=== PATIENT | male | born 1945 | race Caucasian/White ===

== ENCOUNTER → 2017-02-13 | Outpatient (REF) | payer MEDICARE ==
[2017-02-13 13:28] LABS: BASO % 0.5 % (0.0-1.0); EOS # 0.1 K/mm3 (0.0-0.50); EOS % 1.5 % (0.0-3.0); LARGE UNSTAINED CELL # 0.1 K/mm3 (0.0-0.4); LARGE UNSTAINED CELL % 1.6 % (0.0-4.0); LYMPH % 15.1 % (24.0-44.0); MEAN CORPUSCULAR HEMOGLOBIN 30.4 pg (27.0-33.0); MEAN CORPUSCULAR HGB CONC 33.6 g/dl (32.0-36.5); MEAN CORPUSCULAR VOLUME 90.7 fl (80.0-96.0); MONO # 0.3 K/mm3 (0.0-0.8); MONO % 5.4 % (0.0-5.0); NEUTROPHILS # 4.8 K/mm3 (1.8-7.7); PLATELET COUNT, AUTOMATED 225 k/mm3 (150-450); RED CELL DISTRIBUTION WIDTH 12.3 % (11.5-14.5); WHITE BLOOD COUNT 6.4 K/mm3 (4.0-10.0)
[2017-02-13 14:35] LABS: ERYTHROCYTE SEDIMENTATION RATE 8 mm/hr (0-20)
[2017-02-15 00:06] LABS: Lyme Disease IgG/IgM Antibodie <0.91 ISR (0.00-0.90); Lyme Disease IgM Ab Quantitati <0.80 index (0.00-0.79)
== END ==
LOC: M LABDRAW1 12:54
PROVIDERS: ATTEND Orthopaedic Surgery
DX: M17.11 Unilateral primary osteoarthritis, right knee (principal)

== ENCOUNTER → 2017-04-27 | Outpatient (CLI) | payer MEDICARE ==
--- NOTE | 2017-04-27 10:56 | REP ---
REASON: Left lower leg pain. COMPARISON: None. After the intravenous administration of 20.10 millicuries of technetium 99m MDP, a triple phase bone scan of the lower leg was obtained bilaterally. The flow study shows no abnormal increased or decreased radionuclide accumulation in either right or left lower extremity. Blood pool imaging shows no abnormal increased or decreased radionuclide accumulation in either lower extremity. Delayed imaging shows no abnormal increased or decreased radionuclide accumulation in either lower extremity. IMPRESSION: Triple phase bone scan is within normal limits as described above. Signed by Evan Loera DO 04/27/2017 11:36 A
== END ==
LOC: M RAD 07:19
PROVIDERS: ATTEND Orthopaedic Surgery
DX: M79.662 Pain in left lower leg (principal)
CPT/HCPCS: 78315; A9503

== ENCOUNTER → 2018-09-10 | Outpatient (REF) | payer MEDICARE ==
[2018-09-10 16:44] LABS: BASO # 0.1 10^3/uL (0.0-0.2); BASO % 0.7 % (0.0-1.0); EOS # 0.1 10^3/uL (0.0-0.50); EOS % 1.6 % (0.0-3.0); HEMATOCRIT 43.9 % (42.0-52.0); HEMOGLOBIN 14.2 g/dl (13.5-17.5); IMMATURE GRANULOCYTE % 0.3 % (0-3.0); MEAN CORPUSCULAR HEMOGLOBIN 29.8 pg (27.0-33.0); MEAN CORPUSCULAR HGB CONC 32.3 g/dl (32.0-36.5); MEAN CORPUSCULAR VOLUME 92.2 fl (80.0-96.0); MONO # 0.5 10^3/uL (0.0-0.8); MONO % 7.3 % (0.0-5.0); NEUTROPHILS # 5.2 10^3/uL (1.8-7.7); NEUTROPHILS % 76.1 % (36.0-66.0); PLATELET COUNT, AUTOMATED 218 10^3/uL (150-450); RED BLOOD COUNT 4.76 10^6/uL (4.30-6.10); RED CELL DISTRIBUTION WIDTH 13.3 % (11.5-14.5); WHITE BLOOD COUNT 6.9 10^3/uL (4.0-10.0)
[2018-09-10 16:48] LABS: URIC ACID 4.5 MG/DL (3.5-7.2)
[2018-09-10 16:48] LABS: C REACTIVE PROTEIN QUANTITATIV 0.31 MG/DL (0.00-0.30); RHEUMATOID FACTOR QUANT < 10.0 IU/ML (<15.0)
[2018-09-10 17:32] LABS: ERYTHROCYTE SEDIMENTATION RATE 7 mm/hr (0-20)
[2018-09-13 00:08] LABS: ANTINUCLEAR ANTIBODIES DIRECT Negative (Negative); Lyme Disease IgG/IgM Antibodie <0.91 ISR (0.00-0.90); Lyme Disease IgM Ab Quantitati <0.80 index (0.00-0.79)
== END ==
LOC: M LABDRAW1 15:47
DX: M70.62 Trochanteric bursitis, left hip (principal)
CPT/HCPCS: 84550

== ENCOUNTER → 2019-06-08 | Outpatient (CLI) | payer MEDICARE ==
--- NOTE | 2019-06-10 08:08 | REP ---
LUMBAR SPINE MRI STUDY: HISTORY: Low back pain. Rule out stenosis. Sciatica. No comparison MRI study. Comparison radiographs are from June 12, 2017. TECHNIQUE: Sagittal and axial T1- and T2-weighted scans are acquired in the usual fashion with and without fat saturation. Sequences include spin echo, turbo spin echo, and STIR imaging sequences. MRI FINDINGS: Lumbar vertebral body heights are preserved. No bony destructive lesion is seen. There is advanced diffuse degenerative disc disease. The tip of the conus medullaris is normal in position and appearance at T12-L1. No extra vertebral abnormality is appreciated. At the L1-2 disc, there is moderate diffuse bulging of the posterior disc margin indenting the ventral margin of the thecal sac. There is mild central canal stenosis due to this as well as some bilateral ligamentum flavum and facet hypertrophy. AP dimension of the thecal sac at L1-2 measures 5.5 mm. There is a right foraminal disc bulge encroaching the right neural foramen. At L2-3, pedicles are developmentally short. There is moderate diffuse disc bulging, which contributes along with ligamentum flavum and facet hypertrophy to severe central canal stenosis at L2-3. The facet and ligamentum flavum hypertrophy are more prominent on the left than the right. AP dimension of the thecal sac at L2-3 is 6.8 mm. CSF signal is effaced on T2-weighted scans from the thecal sac at the disc level. The caudate equine components are buckled in the thecal sac proximal to this level. There is facet hypertrophy and disc bulging encroaching on the left the neural foramen at L2-3. At L3-4, there are similar findings with diffuse disc bulging, ligamentum flavum hypertrophy, and advanced bilateral facet hypertrophy producing severe central canal stenosis. The thecal sac measures only 5 mm and CSF signal is effaced from that. There is bilateral neural foraminal narrowing from facet hypertrophy and disc bulging. At the L4-5, disc level there is also severe central canal stenosis due to the same factors of diffuse moderate disc bulging, developmentally short pedicles, and severe facet and ligamentum flavum hypertrophy bilaterally. Midline AP dimension of the thecal sac at the L4-5 level is 4.4 mm. There is bilateral neural foraminal encroachment. At L5-S1 there is minimal facet hypertrophy and central disc bulging. No central canal stenosis or foraminal narrowing is seen. 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 Central canal stenosis is severe at L2-3, L3-4, and L4-5; and mild at L1-2 . Multilevel neural foraminal encroachment. Electronically Signed by Freedom Rodrgiuez MD 06/10/2019 08:39 A
== END ==
LOC: M RAD 10:50
PROVIDERS: ATTEND Physician Assistant Surgical
DX: M47.812 Spondylosis without myelopathy or radiculopathy, cervical region (principal); M48.07 Spinal stenosis, lumbosacral region; M51.27 Other intervertebral disc displacement, lumbosacral region

== ENCOUNTER → 2019-09-19 | Outpatient (REF) | payer MEDICARE, OTHER ==
[2019-09-19 13:32] LABS: APPEARANCE, URINE CLEAR (CLEAR); BACTERIA, URINE AUTO NEGATIVE (NEGATIVE); BILIRUBIN, URINE AUTO NEGATIVE (NEGATIVE); BLOOD, URINE BLOOD NEGATIVE (NEGATIVE); COLOR, URINE YELLOW (YELLOW); GLUCOSE, URINE (UA) AUTO 3+ mg/dL (NEGATIVE); KETONE, URINE AUTO NEGATIVE (NEGATIVE); LEUKOCYTE ESTERASE, URINE AUTO TRACE (NEGATIVE); MUCUS, URINE SMALL (NEGATIVE); NITRITE, URINE AUTO NEGATIVE (NEGATIVE); PROTEIN, URINE AUTO NEGATIVE (NEGATIVE); RBC, URINE AUTO 2 /HPF (0-3); SPECIFIC GRAVITY URINE AUTO 1.027 (1.002-1.035); SQUAMOUS EPITHELIAL CELL UR AU 2 /HPF (0-6); UROBILINOGEN, URINE AUTO 0.2 mg/dL (0.0-2.0); WBC, URINE AUTO 25 /HPF (0-3)
== END ==
LOC: M SMT 12:53
PROVIDERS: ATTEND Nurse Practitioner Women's Health
DX: R32 Unspecified urinary incontinence (principal)
CPT/HCPCS: 51798; 81001; 87088; 87186; G0463

== ENCOUNTER → 2019-10-17 | Outpatient (REF) | payer MEDICARE, OTHER ==
[2019-10-17 13:43] LABS: APPEARANCE, URINE CLEAR (CLEAR); BACTERIA, URINE AUTO NEGATIVE (NEGATIVE); BILIRUBIN, URINE AUTO NEGATIVE (NEGATIVE); BLOOD, URINE BLOOD 1+ (NEGATIVE); COLOR, URINE YELLOW (YELLOW); GLUCOSE, URINE (UA) AUTO 3+ mg/dL (NEGATIVE); KETONE, URINE AUTO NEGATIVE (NEGATIVE); LEUKOCYTE ESTERASE, URINE AUTO 1+ (NEGATIVE); MUCUS, URINE SMALL (NEGATIVE); NITRITE, URINE AUTO NEGATIVE (NEGATIVE); PROTEIN, URINE AUTO NEGATIVE (NEGATIVE); RBC, URINE AUTO 9 /HPF (0-3); SPECIFIC GRAVITY URINE AUTO 1.028 (1.002-1.035); SQUAMOUS EPITHELIAL CELL UR AU 1 /HPF (0-6); UROBILINOGEN, URINE AUTO 0.2 mg/dL (0.0-2.0); WBC, URINE AUTO 8 /HPF (0-3)
== END ==
LOC: M SMT 13:01
PROVIDERS: ATTEND Nurse Practitioner Women's Health
DX: N39.0 Urinary tract infection, site not specified (principal)

== ENCOUNTER → 2019-11-14 | Outpatient (CLI) | payer MEDICARE | LOC: M PLALAB 12:34 | PROVIDERS: ATTEND Urology | DX: N39.0 Urinary tract infection, site not specified (principal) | CPT/HCPCS: 36415; G0103 ==

== ENCOUNTER → 2020-01-02 | Outpatient (REF) | payer MEDICARE ==
[2020-01-02 14:25] LABS: PLATELET COUNT, AUTOMATED 214 10^3/uL (150-450)
[2020-01-02 14:32] LABS: INR 0.97; PROTHROMBIN TIME 12.6 SECONDS (11.8-14.0)
[2020-01-02 14:33] LABS: PARTIAL THROMBOPLASTIN TIME 35.4 SECONDS (25.0-38.4)
== END ==
LOC: M LABDRAW1 12:49
PROVIDERS: ATTEND Physician Assistant
DX: Z01.812 Encounter for preprocedural laboratory examination (principal); M47.817 Spondylosis without myelopathy or radiculopathy, lumbosacral region

== ENCOUNTER → 2022-04-19 | Outpatient (CLI) | payer MEDICARE, MEDICAID | LOC: M PLAIMG 12:25 | PROVIDERS: ATTEND Physician Assistant | DX: M70.61 Trochanteric bursitis, right hip (principal) ==

== ENCOUNTER → 2022-08-11 | Outpatient (CLI) | payer MEDICARE, MEDICAID ==
[~2022-08-11] MED LIST: ACET1TAB55 PO; AMIO200T37; BISA10SU27 PR; CVS10CAP7 PO; CYCL1DRO10; DESI13CR2 TOP; DULO1CAP6; ELIQ5TAB PO; EQL50TAB2 PO; FLOM0.4C39 PO; FURO20TA2 PO; GLUCINJ; INSU100V2 SQ; INSUDET SC; JARD1TAB3 PO; LANTINJ4 SC; LIDOCAINE 1% MDV 20ML VIAL As Ordered ONE; LISI2.5T9 PO; LORA-243 PO; MAGN400T2 PO; MELO15TA28 PO; METF10004 PO; MILK24002 PO; PANT40TA29 PO; POLY510P14 PO; ROSU20TA5 PO; SENN8.6T58 PO; [UNRECOGNIZED DRUG - CODE] IV
[2022-08-11 12:02] VITALS: BP 125/58
== END ==
LOC: M IRPRO 11:38
PROVIDERS: ATTEND Specialist
DX: D48.0 Neoplasm of uncertain behavior of bone and articular cartilage (principal); Z85.038 Personal history of other malignant neoplasm of large intestine; Z79.01 Long term (current) use of anticoagulants; Z79.899 Other long term (current) drug therapy; Z53.09 Procedure and treatment not carried out because of other contraindication